=== PATIENT | female | born 1975 | race Two or more races ===

== ENCOUNTER 2024-06-14 14:43 | Emergency (ER) | payer OTHER ==
[~2024-06-14] VITALS: Ht 162.6 cm; Wt 121.4 kg
[2024-06-14 14:49] VITALS: TEMP 97.9
[2024-06-14] MEDS ORDERED: TRAM50TA5 PO (14:52)
[2024-06-14 16:13] LABS: BASOPHILS % (AUTO) 0.3 % (0.0-2.0); EOSINOPHILS % (AUTO) 1.5 % (1.0-6.0); HEMATOCRIT 26.3 % (36-46); HEMOGLOBIN 7.9 g/dL (12.0-16.0); LYMPHOCYTES # (AUTO) 1.1 K/uL (1.0-4.8); LYMPHOCYTES % (AUTO) 31.4 % (22.0-44.0); MEAN CORPUSCULAR HEMOGLOBIN 20.9 pg (26.0-34.0); MEAN CORPUSCULAR VOLUME 70 fL (80-100); MONOCYTES # (AUTO) 0.4 K/uL (0.1-1.0); MONOCYTES % (AUTO) 10.8 % (2.0-9.0); PLATELET COUNT (AUTO) 333 K/uL (150-450); RED BLOOD CELL COUNT(AUTO) 3.78 MIL/uL (4.00-5.20); RED CELL DISTRIBUTION WIDTH 16.6 % (11.5-14.5); WHITE BLOOD COUNT (AUTO) 3.6 K/uL (4.5-11.0)
[2024-06-14 16:28] LABS: ANION GAP 4 mmol/L (8-16); CALCIUM, TOTAL 8.4 mg/dL (8.8-10.5); CARBON DIOXIDE 30 mmol/L (22-29); CHLORIDE 102 mmol/L (98-107); CREATININE 0.83 mg/dL (0.60-1.30); GLOMERULAR FILTR. RATE CALC > 60 mL/min (>60); GLUCOSE,RANDOM 93 mg/dL (70-110); POTASSIUM 3.7 mmol/L (3.5-5.1); SODIUM SERUM 136 mmol/L (136-145); UREA NITROGEN, BLOOD 16 mg/dL (7-18)
[2024-06-14 16:31] LABS: RBC MORPHOLOGY COMMENT ABNORMAL RBC MORPH
[2024-06-14 18:00] VITALS: BP 129/77; PULSE 82; RESP 14
[2024-06-14] MEDS ORDERED: IBUP-1554 PO (18:34)
== END 2024-06-14 18:45 | disposition home or self-care (01) ==
LOC: EMS 14:43
DX: I80.2 Phlebitis and thrombophlebitis of other and unspecified deep vessels of lower extremities (principal); G89.29 Other chronic pain; M54.9 Dorsalgia, unspecified; Z98.890 Other specified postprocedural states
CPT/HCPCS: 80048; 85025; 85379; 93970; 99284

== ENCOUNTER 2024-07-20 01:17 | Emergency (ER) | payer OTHER ==
[~2024-07-20] VITALS: Ht 162.6 cm; Wt 122.7 kg
[~2024-07-20 01:17] MED LIST: IBUP-1554 PO; TRAM50TA5 PO
[2024-07-20 01:40] VITALS: TEMP 98.7
[2024-07-20 02:15] LABS: BASOPHILS % (AUTO) 0.8 % (0.0-2.0); EOSINOPHILS % (AUTO) 1.5 % (1.0-6.0); HEMATOCRIT 30.5 % (36-46); HEMOGLOBIN 9.2 g/dL (12.0-16.0); LYMPHOCYTES # (AUTO) 0.9 K/uL (1.0-4.8); LYMPHOCYTES % (AUTO) 26.4 % (22.0-44.0); MEAN CORPUSCULAR HGB CONC 30.2 G/dL (31.0-37.0); MEAN CORPUSCULAR VOLUME 70 fL (80-100); MONOCYTES # (AUTO) 0.3 K/uL (0.1-1.0); MONOCYTES % (AUTO) 9.5 % (2.0-9.0); NEUTROPHILS # (AUTO) 2.1 K/uL (1.8-7.7); NEUTROPHILS % (AUTO) 61.8 % (40.0-70.0); PLATELET COUNT (AUTO) 361 K/uL (150-450); RED BLOOD CELL COUNT(AUTO) 4.37 MIL/uL (4.00-5.20); RED CELL DISTRIBUTION WIDTH 17.1 % (11.5-14.5); WHITE BLOOD COUNT (AUTO) 3.4 K/uL (4.5-11.0)
[2024-07-20 02:23] LABS: ANION GAP 6 mmol/L (8-16); CARBON DIOXIDE 29 mmol/L (22-29); CHLORIDE 101 mmol/L (98-107); CREATININE 0.82 mg/dL (0.60-1.30); GLOMERULAR FILTR. RATE CALC > 60 mL/min (>60); GLUCOSE,RANDOM 96 mg/dL (70-110); POTASSIUM 4.1 mmol/L (3.5-5.1); SODIUM SERUM 136 mmol/L (136-145); UREA NITROGEN, BLOOD 17 mg/dL (7-18)
[2024-07-20 02:27] LABS: B-TYPE NATRIURETIC PEPTIDE 28 pg/mL (0-100)
[2024-07-20 02:34] LABS: TROPONIN I-HIGH SENSITIVITY Less Than 4 ng/L (<51)
[2024-07-20 02:40] LABS: RBC MORPHOLOGY COMMENT ABNORMAL RBC MORPH
[2024-07-20 03:30] LABS: ALBUMIN 3.3 g/dL (3.4-5.0); BILIRUBIN,DIRECT 0.1 mg/dL (0.00-0.20); BILIRUBIN,TOTAL 0.2 mg/dL (0.1-1.0); MAGNESIUM 1.7 mg/dL (1.80-2.40); TOTAL PROTEIN, SERUM 7.4 g/dL (6.4-8.2)
[2024-07-20] MEDS: LORazepam 1 MG TABLET PO ONE (04:01)
[2024-07-20 04:27] LABS: TROPONIN I-HIGH SENSITIVITY Less Than 4 ng/L (<51)
[2024-07-20] MEDS: MAGNESIUM SULFATE 2 GM/WATER 50 ML IV ONE (04:43)
[2024-07-20 05:52] VITALS: BP 129/79; PULSE 68; RESP 18; O2SAT 99
== END 2024-07-20 05:55 | disposition home or self-care (01) ==
LOC: EMS 01:17
DX: R07.9 Chest pain, unspecified (principal); E83.42 Hypomagnesemia; R20.2 Paresthesia of skin
CPT/HCPCS: 99285; 96365; 71045; 80048; 80076; 83690; 83735; 83880; 84484; 84703; 85025; 93005; 36415; J3475

== ENCOUNTER 2025-08-31 18:56 | Emergency (ER) | payer OTHER ==
[~2025-08-31] VITALS: Ht 162.6 cm; Wt 90.5 kg
[2025-08-31] MEDS ORDERED: IBUP-1554 PO (23:54)
[2025-09-01] MEDS: IBUPROFEN 600 MG TABLET PO ONE
[2025-09-01 00:16] VITALS: BP 124/71; PULSE 71; RESP 16; TEMP 97.3; O2SAT 98
== END 2025-09-01 00:16 | disposition home or self-care (01) ==
LOC: EMS 19:19
DX: S90.32XA Contusion of left foot, initial encounter (principal); X58.XXXA Exposure to other specified factors, initial encounter; Y93.89 Activity, other specified; Y92.89 Other specified places as the place of occurrence of the external cause; Y99.8 Other external cause status
CPT/HCPCS: 99283